=== PATIENT | female | born 1960 | race Hispanic/Latino ===

== ENCOUNTER → 2024-08-03 | Outpatient (CLI) | payer MEDICARE | END | disposition home or self-care (01) | LOC: SHCH 14:16 | PROVIDERS: ATTEND Student in an Organized Health Care Education/Training Program | DX: I08.0 Rheumatic disorders of both mitral and aortic valves (principal); Z95.0 Presence of cardiac pacemaker | CPT/HCPCS: 93306 ==

== ENCOUNTER 2025-02-20 06:12 | Day surgery (SDC) | payer MEDICARE, MEDICAID ==
[2025-02-19 10:28] LABS: IMMATURE GRANULOCYTE ABSOLUTE 0.02 K/uL (0-1); NUCLEATED RED BLOOD CELLS 0.0 % (0.0-0.19); PLATELET COUNT (AUTO) 314 K/uL (130-400); RED BLOOD CELL COUNT(AUTO) 3.08 MIL/uL (4.00-5.50); RED CELL DISTRIBUTION WIDTH 13.5 % (11.0-15.5); WHITE BLOOD COUNT (AUTO) 7.7 K/uL (4.8-10.8)
[2025-02-19 10:42] VITALS: BP 135/52; PULSE 64; RESP 17; TEMP 97.3
[2025-02-19 10:42] LABS: CREATININE 1.2 mg/dL (0.5-1.0); GLOMERULAR FILTR. RATE CALC 50.0 mL/min (>90); GLUCOSE,RANDOM 167.0 mg/dL (70-105); SODIUM SERUM 136.0 mmol/L (136-145); UREA NITROGEN, BLOOD 33.0 mg/dL (7-18)
[2025-02-19 10:49] LABS: INR 1.41 (0.85-1.15)
--- NOTE | 2025-02-19 11:14 | NUR ---
REPORT REPORTED H&H TO DR Andrea PRIETO. AND THAT PT TOOK PRADAXA THIS MORNING AT 7:30. OK TO PROCEED
--- NOTE | 2025-02-19 11:48 | EKG ---
[facility] Test Date: 2025-02-19 Test Time: 11:54:26 Pat Name: DAINA CHAVIRA Department: [facility] Room: Gender: F Motion Study Analyst: [id number] : 1960 Requested By: ANAY PRIETO Order Number: [id number] Reading MD: Everardo Jeong Measurements Intervals [place] Rate: 60 P: 0 RI: 178 QRS: 4 QRSD: 81 T: 26 QT: 423 QTc: 422 Interpretive Statements Atrial-paced complexes Low voltage, precordial leads No previous ECG available for comparison Electronically Signed On 02-19-2025 18:17:08 [employer]ATE[employer]IC PARTNER DEVELOPMENT MANAGER by Everardo Jeong Please click the below link to view image of tracing.
[2025-02-20] VITALS (21 sets, daily range): BP systolic 140–182; BP diastolic 51–71; PULSE 60–75; RESP 10–16; TEMP 97.9
[~2025-02-20] VITALS: Ht 157.5 cm; Wt 56.5 kg
[~2025-02-20 06:12] MED LIST: AEC81 PO; AMLO2.5T4 PO; ATOR-2 PO; BRIM5DRO OP; CALCIUM PO; CHOL-9 PO; CLOP75TA32 PO; DABI150C PO; EZET10TA80 PO; LATA2.5D7 OP; METF-444 PO; PANT40TA54 PO; PLEC3TAB2 PO
[2025-02-20] MEDS ORDERED: LIDOCAINE PF 100MG/5ML (2%) SYRINGE 5ML ONE (06:53)
--- NOTE | 2025-02-20 07:00 | NUR ---
ERIBERTO: PREPARING PATIENT FOR ERIBERTO TO BE DONE. 07:05 TIME OUT DONE WITHOUT ANY PROBLEMS. ANJELICA WHITAKER CRNA STARTED MEDICATION. START TIME WITH TUBE INSERTION PER DR. ANAY PRIETO AT 07:10 WITH NO PROBLEMS. BUBBLE STUDY DONE AT 07:124 AM PER WOLF GRANADO RN. TUBE REMOVED AT O7:16 AM. SUCTIONING DONE PER DR ANAY PRIETO. COMPLETED OVERALL AT 07:23. TOLERATED WELL..
[2025-02-20] MEDS: 0.9%NACL 1000ML 1,000 ML IV SCH (09:16)
--- NOTE | 2025-02-20 09:27 | HMCSR ---
APPROVED REPORT EXAM: Transesophageal echocardiogram with color flow Doppler. INDICATION ICD: I51.3 Reason For Test : Rule out cardiac source of emboli. PROCEDURE After obtaining informed consent, patient underwent transesophageal echo in the Daypatient room 15. Type of Sedation: General Anesthesia Sedation was administered by Please refer to medication administration record . Sedation was achieved with Please refer to medication administration record. intravenously. Transesophageal probe was inserted and advanced into esophagus without difficulty by . Echo enhancement agent administered: Agitated Saline. ERIBERTO was performed and images were obtained, probe was removed without complications. Throughout the procedure, the blood pressure, pulse oximetry, cardiac rhythm, and rate were monitored. Left Ventricle The left ventricle is normal size. Mild concentric left ventricular hypertrophy. Sigmoid septum is present. LVEF is 60-65%. No left ventricle thrombus noted on this study. Right Ventricle The right ventricle is normal size. The right ventricular systolic function is normal. Device lead is present in the right ventricle. Atria The left atrium size is normal. Small left atrial appendage thrombus noted. Spontaneous contrast seen. Negative bubble study. No evidence of PFO/ASD by agitated saline. The right atrium size is normal. Aortic Valve Aortic valve is trileaflet and opens well. Trace of aortic regurgitation is present. There is no aortic valvular stenosis. Mitral Valve The mitral valve is normal in structure. There is trace of mitral valve regurgitation noted. There is no mitral valve stenosis. Tricuspid Valve The tricuspid valve is normal in structure. There is no tricuspid valve regurgitation noted. Pulmonic Valve The pulmonary valve is normal in structure. There is no pulmonic valvular regurgitation. Great Vessels The aortic root is normal in size. Pericardium There is no pericardial effusion. Conclusion The left ventricle is normal size. Mild concentric left ventricular hypertrophy. Sigmoid septum is present. LVEF is 60-65%. The right ventricle is normal size. The right ventricular systolic function is normal. Device lead is present in the right ventricle. The left atrium size is normal. Small left atrial appendage thrombus noted. Spontaneous contrast seen. Negative bubble study. No evidence of PFO/ASD by agitated saline. The right atrium size is normal. No valvular pathology. There is no pericardial effusion.
== END 2025-02-20 08:35 | disposition home or self-care (01) ==
LOC: DAH 06:12
PROVIDERS: ATTEND Student in an Organized Health Care Education/Training Program
DX: I51.3 Intracardiac thrombosis, not elsewhere classified (principal); I10 Essential (primary) hypertension; E11.9 Type 2 diabetes mellitus without complications; I65.21 Occlusion and stenosis of right carotid artery; R53.83 Other fatigue; R56.9 Unspecified convulsions; I47.29 Other ventricular tachycardia; Z86.73 Personal history of transient ischemic attack (TIA), and cerebral infarction without residual deficits; Z88.1 Allergy status to other antibiotic agents; Z79.84 Long term (current) use of oral hypoglycemic drugs; Z95.0 Presence of cardiac pacemaker; Z95.5 Presence of coronary angioplasty implant and graft; Z79.82 Long term (current) use of aspirin; Z79.899 Other long term (current) drug therapy
CPT/HCPCS: 80048; 85025; 85610; 85730; 36415; 93005; 82948; 93325; 93312; J7030; J2003; J2704; J2371; A4620; A4215; A4223 ×3; A4657; A7002; A4222; A4221; A4663; A4216; A4606; J3490